=== PATIENT | female | born 1975 | race Two or more races ===

== ENCOUNTER 2019-02-03 19:39 | Emergency (ER) | payer OTHER ==
[~2019-02-03] VITALS: Ht 175.3 cm; Wt 84.8 kg
--- NOTE | 2019-02-03 19:54 | ED.ADGEN ---
Adult General Chief Complaint Chief Complaint ".. I broke out in this entire rash... itching.. maybe the sheet in the hotel..." HPI HPI Patient is a 43 year old female who presents with above hx and complaints of rash. Patient has diffuse erythema and hives over her entire body. No history of new meds or foods. No changes in soaps or personal hygiene products. Only changes exposure to tell sheets where she is staying in. Patient is normally healthy. No specific ill contacts. No previous history of a diffuse allergic reaction. Review of Systems Review of Systems Constitutional: Denies fever or chills [] Eyes: Denies change in visual acuity, redness, or eye pain [] HENT: Denies nasal congestion or sore throat [] Respiratory: Denies cough or shortness of breath [] Cardiovascular: No additional information not addressed in HPI [] GI: Denies abdominal pain, nausea, vomiting, bloody stools or diarrhea [] : Denies dysuria or hematuria [] Musculoskeletal: Denies back pain or joint pain [] Integument: Complains of generalized erythemic rash and hives Neurologic: Denies headache, focal weakness or sensory changes [] Endocrine: Denies polyuria or polydipsia [] All other systems were reviewed and found to be within normal limits, except as documented in this note. Family History Family History Noncontributory Current Medications Current Medications Current Medications Medications (Trade) Dose Ordered Sig/Peter Start Time Stop Time Status Last Admin Dose Admin Albuterol Sulfate (Ventolin Hfa Inhaler) 2 puff 1X ONCE 02/03/19 21:30 02/03/19 21:31 DC 02/03/19 21:23 2 PUFF Diphenhydramine HCl (Benadryl) 50 mg 1X ONCE 02/03/19 21:00 02/03/19 21:06 DC 02/03/19 21:04 50 MG Famotidine (Pepcid Vial) 20 mg 1X ONCE 02/03/19 21:00 02/03/19 21:06 DC 02/03/19 21:04 20 MG Magnesium Hydroxide (Milk Of Magnesia) 2,400 mg 1X ONCE 02/03/19 21:00 02/03/19 21:06 DC 02/03/19 21:04 2,400 MG Methylprednisolone Sodium Succinate (SOLU-Medrol 125MG VIAL) 125 mg 1X ONCE 02/03/19 21:00 02/03/19 21:06 DC 02/03/19 21:04 125 MG Allergies Allergies Allergies Coded Allergies Type Severity Reaction Last Updated Verified No Known Drug Allergies 02/03/19 No Physical Exam Physical Exam Constitutional: Well developed, well nourished, in acute distress, non-toxic appearance. [] HENT: Normocephalic, atraumatic, bilateral external ears normal, oropharynx moist, no oral exudates, nose normal. [] Eyes: PERRLA, EOMI, conjunctiva normal, no discharge. [] Neck: Normal range of motion, no tenderness, supple, no stridor. [] Cardiovascular:Heart rate regular rhythm, no murmur [] Lungs & Thorax: Bilateral breath sounds clear to auscultation [] Abdomen: Bowel sounds normal, soft, no tenderness, no masses, no pulsatile masses. [] Skin: Warm, dry, diffuse erythemic hive like rash Back: No tenderness, no CVA tenderness. [] Extremities: No tenderness, no cyanosis, no clubbing, ROM intact, no edema. [] Neurologic: Alert and oriented X 3, normal motor function, normal sensory function, no focal deficits noted. [] Psychologic: Affect normal, judgement normal, mood normal. [] Current Patient Data Vital Signs Vital Signs Date Time Temp Pulse Resp B/P (MAP) Pulse Ox O2 Delivery O2 Flow Rate FiO2 02/03/19 21:28 98 Room Air 02/03/19 19:59 98.0 87 18 EKG EKG [] Radiology/Procedures Radiology/Procedures [] Course & Med Decision Making Course & Med Decision Making Pertinent Labs and Imaging studies reviewed. (See chart for details) Patient tried to determine the allergen that produced her allergic reaction. Patient to take prednisone 50 mg a day for 5 days. Takes Zantac 150 mg twice day for 10 days. Patient uses MDI 2 puffs 4 times a day. Patient take Benadryl 25- 50 mg 4 times a day for itching. Patient return if any concerns. [] Final Impression Final Impression 1. Allergic Reaction[] Dragon Disclaimer Dragon Disclaimer This electronic medical record was generated, in whole or in part, using a voice recognition dictation system. Dragon Disclaimer This chart was dictated in whole or in part using Voice Recognition software in a busy, high-work load, and often noisy Emergency Department environment. It may contain unintended and wholly unrecognized errors or omissions. FRANCES MILLER MD Feb 03, 2019 19:54
[2019-02-03 19:59] VITALS: BP 127/70
[2019-02-03] MEDS ORDERED: RANI-376 PO (20:52)
[2019-02-03] MEDS ORDERED: PRED50TA PO (20:52)
[2019-02-03] MEDS ORDERED: FAMOTIDINE 20 MG/2 ML VIAL IVP ONE (21:00)
[2019-02-03] MEDS ORDERED: diphenhydrAMINE 50 MG/ML VIAL IVP ONE (21:00)
[2019-02-03] MEDS ORDERED: MAGNESIUM HYDROXIDE 2,400 MG/30 ML ORAL.SUSP. PO ONE (21:00)
[2019-02-03] MEDS ORDERED: methylPREDNISolone SOD SUCC PF 125 MG/2 ML VIAL. IV ONE (21:00)
[2019-02-03] MEDS ORDERED: ALBUTEROL SULFATE 8GM INHALER. INH ONE (21:30)
== END 2019-02-03 21:45 | disposition home or self-care (01) ==
LOC: ER 19:39
DX: L50.0 Allergic urticaria (principal)
CPT/HCPCS: 94640; 96374; 96375; 99284; J1200; J2930; J3490; J7613